=== PATIENT | female | born 1995 | race Two or more races ===

== ENCOUNTER 2023-10-03 20:54 | Inpatient (IN) ==
[2023-10-03 21:13] VITALS: BMI 27.6
[2023-10-03 21:24] LABS: BILIRUBIN,URINE NEGATIVE (NEGATIVE); BLOOD/HEMOGLOBIN,URINE 2+ (NEGATIVE); GLUCOSE, URINE NEGATIVE (NEGATIVE); KETONES,URINE 4+ (NEGATIVE); LEUKOCYTE ESTERASE ,URINE NEGATIVE (NEGATIVE); NITRITES,URINE NEGATIVE (NEGATIVE); PROTEIN,URINE 2+ (NEGATIVE); UROBILINOGEN,URINE NORMAL (NORMAL)
[2023-10-03 21:26] LABS: APPEARANCE,URINE SLIGHTLY HAZY (CLEAR); COLOR,URINE YELLOW (YELLOW)
[2023-10-03 21:31] LABS: AMNISURE ROM TEST THERE IS A RUPTURE (NO RUPTURE)
[2023-10-03 21:36] LABS: BACTERIA,URINE 1+ /HPF (NEGATIVE); RBC,URINE 0-2 /HPF (0-3); SQUAMOUS EPITHELIAL CELL,UR NUMEROUS /HPF (NEGATIVE)
[2023-10-03 21:42] LABS: BASOPHILS % (AUTO) 0.2 % (0.2-1.0); EOSINOPHILS % (AUTO) 0.5 % (0.9-2.9); HEMATOCRIT 30.8 % (36.0-47.0); LYMPHOCYTES # (AUTO) 2.1 X10^3/uL (1.3-2.9); LYMPHOCYTES % (AUTO) 24.6 % (21.0-51.0); MEAN CORPUSCULAR HGB CONC 32.6 g/dL (33.0-35.0); MEAN CORPUSCULAR VOLUME 79.8 fL (80.0-100.0); MEAN PLATELET VOLUME 8.7 fL (7.4-11.0); MONOCYTES # (AUTO) 0.5 x10^3/uL (0.3-0.8); NEUTROPHILS # (AUTO) 5.8 x10^3/uL (2.2-4.8); NEUTROPHILS % (AUTO) 68.7 % (42.0-75.0); PLATELET COUNT 261 X10^3/uL (150.0-450.0); RED BLOOD COUNT 3.86 X10^6/uL (3.5-5.4); RED CELL DISTRIBUTION WIDTH 16.3 % (11.6-16.5); WHITE BLOOD COUNT 8.5 X10^3/uL (3.6-10.0)
[2023-10-03 21:46] LABS: ALANINE AMINOTRANSFERASE 19 Units/L (12-78); ALBUMIN 2.4 g/dL (3.4-5.0); ALKALINE PHOSPHATASE 208 Units/L (46-116); ASPARTATE AMINO TRANSFERASE 15 Units/L (15-37); BLOOD UREA NITROGEN 9 mg/dL (7-18); CALCIUM 9.1 mg/dL (8.5-10.1); CARBON DIOXIDE 24.5 mmol/L (21-32); CHLORIDE 100 mmol/L (98-107); COR CA(FOR HYPOALB) 10.4 mg/dL (8.5-10.1); CREATININE 0.53 mg/dL (0.55-1.02); GLUCOSE 78 mg/dL (65-99); POTASSIUM 4.1 mmol/L (3.5-5.1); SODIUM 135 mmol/L (136-145); TOTAL PROTEIN 7.7 g/dL (6.4-8.2); eGFR NON BLACK RACES > 60 (>60)
[2023-10-03] MEDS ORDERED: ZOFRAN INJ 4 MG VIAL IVP PRN (22:01)
[2023-10-03] MEDS ORDERED: OXYTOCIN 20 UNIT/1,000 ML-NS 20 UNIT/1,000 ML PLAST..BAG IV PRN (22:01)
[2023-10-03] MEDS ORDERED: REGLAN INJ 10 MG VIAL IVP PRN (22:01)
[2023-10-03 22:07] LABS: RAPID PLASMA REAGIN NONREACTIVE (NONREACTIVE)
[2023-10-03] MEDS: LR 1,000 ML IV 1,000 ML IV ONE (22:20)
[2023-10-03] MEDS: NUBAIN INJ 20 MG AMP IVP PRN (22:20)
[2023-10-03] MEDS: BETADINE SOLN ONE (23:50)
[2023-10-03] MEDS: PITOCIN IVP ONE (23:52)
[2023-10-04] MEDS ORDERED: AMBIEN PO PRN (00:39)
[2023-10-04] MEDS ORDERED: DERMOPLAST PAIN RELIEF SPRAY TOP PRN (00:39)
[2023-10-04] MEDS: PITOCIN ONE (01:22)
[2023-10-04] MEDS: OXYTOCIN 20 UNIT/1,000 ML-NS 20 UNIT/1,000 ML PLAST..BAG IV SCH (01:47)
[2023-10-04 04:51] LABS: HEMATOCRIT 29.6 % (36.0-47.0); HEMOGLOBIN 9.5 g/dL (12.0-16.0)
[2023-10-04] MEDS: PRENATAL PLUS PO SCH (09:10)
[2023-10-04] MEDS: LR 1,000 ML IV 1,000 ML IV SCH (10:02)
[2023-10-04] MEDS: MOTRIN TAB 800 MG PO PRN (10:20)
[2023-10-04] MEDS: NS 100 ML IV 100 ML with VENOFER 400 MG IV ONE (10:30)
[2023-10-04] MEDS: NUBAIN INJ 200 MG VIAL MULTIDOSE ONE (19:10)
[2023-10-05 08:21] VITALS: RESP 20
[2023-10-05 11:43] VITALS: BP 100/60; PULSE 63; TEMP 98.1; O2SAT 98
== END 2023-10-05 13:04 | disposition home or self-care (01) | DRG 807 ==
LOC: ER 20:54 → LD 22:02 → MED/SURG 10-04 01:00
PROVIDERS: ADMIT Obstetrics & Gynecology Obstetrics; ATTEND Obstetrics & Gynecology Obstetrics
DX: Z37.0 Single live birth; Z3A.40 40 weeks gestation of pregnancy; O70.1 Second degree perineal laceration during delivery; O26.893 Other specified pregnancy related conditions, third trimester